=== PATIENT | female | born 1995 | race Caucasian/White ===

== ENCOUNTER 2019-12-15 10:26 | Emergency (ER) | payer BC ==
[2019-12-15] MEDS ORDERED: HYDROcodone/APAP 5-325MG 1 EACH TAB PO STA (11:41)
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
[2019-12-15] MEDS: ONDANSETRON ODT 4 MG TAB PO STA ×2 (12:28→12:38)
--- NOTE | 2019-12-15 12:48 | CT ---
EXAMINATION TYPE: CT brain cspine wo con DATE OF EXAM: 12/15/2019 COMPARISON: HISTORY: head and back injury CT DLP: 1237.7 mGycm Automated exposure control for dose reduction was used. TECHNIQUE: CT scan of the head and cervical spine are performed without contrast. FINDINGS: There is abnormal low attenuation at the inferior aspect of the right and left frontal lo be with associated increased attenuation along the gyri of the right frontal lobe inferiorly greater than left. The left occipital bone shows minimally displaced fracture on the left extending towards t he region of the occipital condyles at the base of skull, there is an overlying cephalohematoma prese nt with lauren at the skin. No hydrocephalus. 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 Nond isplaced right occipital fracture present as well. Cervical spine is visualized in its entirety from C1 through upper thoracic levels and demonstrates s atisfactory alignment without evidence of acute fracture or dislocation. Prevertebral soft tissue ap pears within normal limits. The C1-C2 articulation is unremarkable. IMPRESSION: 1. There is no acute fracture or dislocation evident in the cervical spine. 2. There are likely frontal lobe contusions present, difficult to exclude a small amount of subarachn oid hemorrhage. Skull fractures.
[2019-12-15 13:44] VITALS: BP 116/78; PULSE 51; RESP 18; TEMP 98.4
== END 2019-12-15 13:44 | disposition home or self-care (01) ==
LOC: EC 10:26
DX: S02.113A Unspecified occipital condyle fracture, initial encounter for closed fracture (principal); S06.2X9A Diffuse traumatic brain injury with loss of consciousness of unspecified duration, initial encounter; W18.39XA Other fall on same level, initial encounter; Y93.41 Activity, dancing
CPT/HCPCS: 70450; 72125; 99284

== ENCOUNTER → 2021-02-22 | Outpatient (CLI) | payer BC | END | disposition home or self-care (01) | LOC: LABWHC1 14:28 | PROVIDERS: ATTEND Obstetrics & Gynecology | DX: O20.0 Threatened abortion (principal); Z3A.00 Weeks of gestation of pregnancy not specified | CPT/HCPCS: 36415; 84702; 86850; 86900; 86901 ==

== ENCOUNTER → 2021-02-24 | Outpatient (CLI) | payer BC | END | disposition home or self-care (01) | LOC: LABWHC1 09:22 | PROVIDERS: ATTEND Obstetrics & Gynecology | DX: O20.0 Threatened abortion (principal); Z3A.00 Weeks of gestation of pregnancy not specified | CPT/HCPCS: 36415; 84702 ==

== ENCOUNTER 2021-11-28 15:59 | Inpatient (IN) | payer BC ==
[2021-11-28] MEDS ORDERED: DINOPROSTONE 10 MG INSERT.ER VAGINAL ONE (16:15)
[2021-11-28] MEDS ORDERED: BUTORPHANOL 1 MG/ML 1 ML VIAL IV PRN (16:36)
--- NOTE | 2021-11-28 16:36 | P.HPOB ---
History of Present Illness H&P Date: 11/28/21 Chief Complaint: IUP at 40 and 0/7 weeks This is a 26-year-old 2 para 0010 at 40-0/7 weeks, estimated due date of 11/28. Patient presents for induction of labor. Patient has had routine care which is been essentially uncomplicated. Patient is noted be group beta strep negative. Patient has a known anterior placenta noted anatomy ultrasound. Patient has noted good movement, occasional contractions, no vaginal bleeding or loss of fluid. On bloodwork this patient has a blood type of A+, rubella status immune, RPR is nonreactive, hepatitis B surface antigen negative, HIV negative, group beta strep culture negative as above. Patient did pass her 1 hour gestational diabetes screen Review of Systems Constitutional: Denies chills, Denies fatigue, Denies fever Ears, nose, mouth and throat: Denies headache Cardiovascular: Reports leg edema Respiratory: Denies dyspnea Gastrointestinal: Denies nausea, Denies vomiting Genitourinary: Reports Past Medical History History of Any Multi-Drug Resistant Organisms: None Reported Smoking Status: Never smoker Medications and Allergies Home Medications Medication Instructions Recorded Confirmed Type No Known Home Medications 11/28/21 11/28/21 History Allergies Allergy/AdvReac Type Severity Reaction Status Date / Time No Known Allergies Allergy Verified 11/28/21 16:01 Exam Osteopathic Statement: *. No significant issues noted on an osteopathic structural exam other than those noted in the History and Physical/Consult. Intake and Output 11/28/21 11/28/21 11/28/21 06:59 14:59 22:59 Other: Weight 81.647 kg Targeted physical exam is performed in this date and equity structurer a well-nourished well-developed female in no acute distress, breathing is noted to be nonlabored, heart has a regular rate and rhythm, abdomen is gravid and appropriate for gestational age, on cervical exam she is 1/50/-3 station vertex presentation confirmed by ultrasound, heart tones are noted to be category 1 and on toco uterine irritability. Assessment and Plan (1) Term Current Visit: Yes Status: Acute Code(s): Z34.90 - ENCNTR FOR SUPRVSN OF NORMAL , UNSP, UNSP TRIMESTER SNOMED Code(s): 27440387 Plan: 26-year-old at 40-0/7 weeks presents for induction of labor. Patient has Cervidil placed this evening for cervical ripening. Patient is counseled on the possibility of going home tomorrow should her cervix not become favorable overnight. Patient is counseled for options of analgesia should she go into active labor, Stadol and epidural are discussed she will consider. Continuous monitoring overnight, will plan to reexamine in the morning for further plan of care.
[2021-11-28] MEDS ORDERED: LACTATED RINGERS 1,000 ML IV SCH (16:45)
[2021-11-28 16:46] LABS: Basophils % (A) 0 %; Eosinophils # (A) 0.1 k/uL (0-0.7); Eosinophils % (A) 0 %; HCT 33.2 % (34.0-46.0); HGB 10.5 gm/dL (11.4-16.0); Hypochromasia Slight; Lymphocytes # (A) 2.1 k/uL (1.0-4.8); Lymphocytes % (A) 14 %; MCHC 31.7 g/dL (31.0-37.0); MCV 88.5 fL (80.0-100.0); Mean Platelet Volume 8.5; Monocytes # (A) 1.1 k/uL (0-1.0); Monocytes % (A) 7 %; Neutrophils # (A) 11.7 k/uL (1.3-7.7); Neutrophils % (A) 77 %; Platelet Count 420 k/uL (150-450); RBC 3.75 m/uL (3.80-5.40); RDW 14.2 % (11.5-15.5); WBC 15.1 k/uL (3.8-10.6)
[2021-11-29] MEDS ORDERED: METHYLERGONOVINE 0.2 MG/ML 1 ML AMP IM PRN (05:50)
[2021-11-29] MEDS ORDERED: LIDOCAINE 1% (PF) 10 MG/ML (30 ML SDV) SQ PRN (05:50)
[2021-11-29] MEDS ORDERED: TERBUTALINE 1 MG/ML VIAL SQ PRN (05:50)
[2021-11-29] MEDS ORDERED: OXYTOCIN 10 UNIT/ML 1 ML VIAL IM PRN (05:50)
[2021-11-29] MEDS ORDERED: CARBOPROST TROMETHAMINE 250 MCG/ML 1 ML AMP IM PRN (05:50)
[2021-11-29] MEDS: LACTATED RINGERS 1,000 ML IV SCH ×3 (06:44→19:39)
[2021-11-29] MEDS: OXYTOCIN 30 UNITS/500 ML NS 30 UNIT in SALINE 1 500ML.BAG IV SCH ×2 (06:45→18:22)
[2021-11-29] MEDS ORDERED: CITRIC ACID-SODIUM CITRATE 15 ML CUP PO ONE (17:04)
[2021-11-29] MEDS ORDERED: ONDANSETRON 4 MG/2 ML VIAL ONE (17:22)
[2021-11-29] MEDS ORDERED: OXYTOCIN 30 UNITS/500 ML NS BAG IV ONE (17:22)
[2021-11-29] MEDS ORDERED: NALBUPHINE 10 MG/ML (1 ML AMP) ONE (17:22)
[2021-11-29] MEDS ORDERED: MORPHINE SULFATE (PF) 0.3 MG/0.3 ML SYR ONE (17:22)
[2021-11-29] MEDS ORDERED: ePHEDrine 50 MG/ML 1 ML AMP ONE (17:22)
[2021-11-29] MEDS ORDERED: fentaNYL (PF) 50 MCG/ML 2 ML AMP ONE (17:22)
[2021-11-29] MEDS ORDERED: OXYTOCIN 10 UNIT/ML 1 ML VIAL ONE (17:22)
[2021-11-29] MEDS ORDERED: ONDANSETRON 4 MG/2 ML VIAL IVP PRN ×2 (18:17→18:26)
[2021-11-29] MEDS ORDERED: NALOXONE 0.4 MG/ML 1 ML VIAL IV PRN ×2 (18:17→18:26)
[2021-11-29] MEDS ORDERED: MORPHINE SULFATE 2 MG/ML SYRINGE IVP PRN (18:17)
[2021-11-29] MEDS ORDERED: diphenhydrAMINE 50 MG/ML 1 ML VIAL IVP PRN ×3 (18:17→18:26)
[2021-11-29] MEDS ORDERED: diphenhydrAMINE 25 MG CAP PO PRN (18:26)
[2021-11-29] MEDS ORDERED: diphenhydrAMINE 50 MG CAP PO PRN (18:26)
[2021-11-29] MEDS ORDERED: SIMETHICONE 80 MG CHEWABLE PO PRN (18:26)
[2021-11-29] MEDS ORDERED: OXYTOCIN 30 UNITS/500 ML NS 30 UNIT in SALINE 1 500ML.BAG IV SCH (18:26)
[2021-11-29] MEDS ORDERED: METOCLOPRAMIDE 5 MG/ML 2 ML VIAL IVP PRN (18:26)
[2021-11-29] MEDS ORDERED: ZOLPIDEM 5 MG TAB PO PRN (18:26)
--- NOTE | 2021-11-29 18:26 | P.OP ---
Date of Procedure: 11/29/21 Preoperative Diagnosis: IUP at 40 1/7 weeks, arrest of dilation, arrest of descent Postoperative Diagnosis: Same plus meconium-stained fluid, nuchal cord 2, true knot in umbilical cord Procedure(s) Performed: Primary low transverse section Anesthesia: spinal Surgeon: Blanca Luque Raw Sampler #1: Jason Pérez Estimated Blood Loss (ml): 708 Pathology: other (Placenta) Condition: stable Disposition: observation Indications for Procedure: Arrest of descent and dilation, meconium-stained fluid. Patient was offered continuing with the induction of labor versus primary . Patient elected primary . Operative Findings: Normal uterus tubes and ovaries were appreciated, viable female infant delivered at 1750, weight of 7 lbs. 0 oz., Apgars of 9 and 9, double nuchal cord was appreciated, true knot was appreciated. Description of Procedure: Patient was taken back to the operating suite where spinal anesthesia was found be adequate by the anesthesia department. She was then prepped and draped in normal sterile fashion in the dorsal supine position. A Pfannenstiel skin incision was made the scalpel and carried through the underlying layer fascia. The fascia then incised in the midline and the incision and fixed is extended laterally. The superior aspect of the fascial incision was then grasped michael clamps, elevated and underlying rectus muscles dissected off sharply. The inferior aspect of the fascial incision was then grasped michael clamps, elevated and underlying rectus muscles dissected off sharply once again. The rectus muscles were in the midline the peritoneum was identified and entered. This incision was then extended superiorly and inferiorly with good visualization the bladder. Bladder blade was then inserted into the pelvis and the bladder flap was then created using sharp and blunt dissection. The bladder blade was then reinserted into the pelvis. Hysterotomy incision was made the scalpel, thick meconium-stained fluid was appreciated. The fetus was encountered in a vertex presentation. The fetus was delivered in the usual fashion, a true knot was appreciated along with a double nuchal cord which was reduced at delivery. The umbilical cord was doubly clamped and cut and the was handed off to awaiting RN. Spontaneous cry was noted at . The placenta was then delivered manually and the uterus was cleared of all clots and debris. Uterine incision was then closed with 0 Vicryl in a running locked fashion. A second imbricating suture was performed. Bleeding was noted on the left-hand side of the uterine incision therefore a [id number] suture was used to obtain hemostasis. On further inspection hemostasis was appreciated. The uterus was returned to the abdomen and the gutters were cleared of all clots and debris. The hysterotomy incision was inspected once again any small points of bleeding were made hemostatic with the Bovie. Surgicel was placed along the hysterotomy incision. The bladder flap was then placed over the hysterotomy incision. The peritoneum was then loosely reapproximated. The rectus muscles were inspected and any points of bleeding were made hemostatic with the Bovie. The fascia was then closed 0 Vicryl in a running fashion from one lateral edge the other and the other lateral edge the other. The subcutaneous tissue was irrigated found to be hemostatic and closed with 3-0 Vicryl in a running fashion. The skin was then closed with 4-0 Vicryl in a subcuticular fashion. All counts room to be correct 2 at the end of the procedure. Patient and infant tolerated procedure well and are resting comfortably
[2021-11-29] MEDS: ACETAMINOPHEN IV (For NPO) 1,000 MG in EMPTY BAG 1 BAG IVPB SCH (19:03)
[2021-11-29] MEDS: IBUPROFEN IV 800 MG in SODIUM CHLORIDE 0.9% 250 ML IV SCH (23:15)
[2021-11-30] MEDS: SENNOSIDES-DOCUSATE SODIUM 1 EACH TAB PO SCH ×3 (07:03→19:43)
--- NOTE | 2021-11-30 07:56 | P.PN ---
Subjective Progress Note Date: 11/30/21 Principal diagnosis: Doing well postoperative day #1 Slept well. Minimal to moderate lochia rubra. Pain well controlled. No complaints. Objective - Vital Signs Vital signs: Vital Signs Temp 98.4 F 11/30/21 04:00 Pulse 80 11/30/21 04:00 Resp 16 11/30/21 05:00 BP 122/64 11/30/21 04:00 Pulse Ox 100 11/30/21 03:00 Intake & Output 11/29/21 11/30/21 11/30/21 18:59 06:59 18:59 Intake Total 11.617 Output Total 1300 Balance 11.617 -1300 Intake: Intake, IV Titration 11.617 Amount Oxytocin 30 Units/500 ml 11.617 Ns 30 unit In Saline 1 500ml.bag @ Per Protocol IV .Q0M [facility] Rx#:[id number] Output: Urine 1300 Other: Voiding Method Indwelling Catheter - Constitutional General appearance: Present: average body habitus, cooperative - EENT Eyes: Present: PERRLA ENT: Present: hearing grossly normal - Respiratory Respiratory: bilateral: CTA - Cardiovascular Rhythm: regular - Gastrointestinal General gastrointestinal: Present: normal bowel sounds - Integumentary Integumentary Comment(s): Incision clean and dry, well approximated. Steri-Strips applied. Fundus firm, midline, symmetric, 18 week size. Integumentary: Present: normal turgor - Neurologic Neurologic: Present: CNII-XII intact - Musculoskeletal Musculoskeletal: Present: gait normal, strength equal bilaterally - Psychiatric Psychiatric: Present: A&O x's 3, appropriate affect, intact judgment & insight - Labs CBC & Chem 7: 11/28/21 16:20 Assessment and Plan Assessment: Doing well post operative day #1 Plan: Advance diet and activity. Ferrous sulfate twice daily. Likely discharge home tomorrow. Time with Patient: Less than 30
[2021-11-30 07:58] LABS: Basophils % (A) 0 %; Eosinophils % (A) 0 %; HCT 28.2 % (34.0-46.0); Hypochromasia Marked; Lymphocytes # (A) 1.8 k/uL (1.0-4.8); Lymphocytes % (A) 11 %; MCH 28.8 pg (25.0-35.0); MCV 89.9 fL (80.0-100.0); Monocytes % (A) 6 %; Neutrophils # (A) 13.6 k/uL (1.3-7.7); Neutrophils % (A) 80 %; Platelet Count 347 k/uL (150-450); RBC 3.14 m/uL (3.80-5.40); RDW 14.7 % (11.5-15.5)
--- NOTE | 2021-11-30 08:08 | P.PN ---
Progress Note - Text Date: 11/30/2021 Time: 07:07 The patient is status post section Vital signs stable VAS: 0-10 Patient has no complaints of pain. The patient incurred some minimal itching yesterday, this itching is now subsiding. Pain meds to be managed by service.
[2021-11-30] MEDS: ACETAMINOPHEN TAB 500 MG TAB PO SCH ×3 (08:18→17:41)
[2021-11-30] MEDS: IBUPROFEN IV 800 MG in SODIUM CHLORIDE 0.9% 250 ML IV SCH (08:21)
[2021-11-30] MEDS: IBUPROFEN 600 MG TAB PO SCH ×4 (08:21→21:07)
[2021-11-30] MEDS: ACETAMINOPHEN IV (For NPO) 1,000 MG in EMPTY BAG 1 BAG IVPB SCH (08:21)
[2021-11-30] MEDS: LACTATED RINGERS 1,000 ML IV SCH ×2 (08:23)
[2021-11-30] MEDS: FERROUS SULFATE 325 MG TAB PO SCH (08:23)
[2021-11-30 21:19] VITALS: RESP 16
[2021-12-01] MEDS: ACETAMINOPHEN TAB 500 MG TAB PO SCH ×3 (00:18→14:35)
[2021-12-01] MEDS: IBUPROFEN 600 MG TAB PO SCH ×3 (03:25→14:58)
--- NOTE | 2021-12-01 08:56 | P.DS ---
Providers Date of admission: 11/28/21 15:59 Expected date of discharge: 12/01/21 Attending physician: Blanca Luque Primary care physician: Blanca Luque - Discharge Diagnosis(es) (1) Term Current Visit: Yes Status: Acute (2) Arrest of dilation, delivered, current hospitalization Current Visit: Yes Status: Acute (3) Arrest of descent, delivered, current hospitalization Current Visit: Yes Status: Acute (4) Double nuchal cord Current Visit: Yes Status: Acute (5) Knot, umbilical cord true Current Visit: Yes Status: Acute (6) S/P section Current Visit: Yes Status: Acute Hospital Course: This is a 26-year-old 2 now para 1011 that presented to labor and delivery at 40 weeks of gestation for induction of labor. Patient had been receiving routine care with myself which had been essentially uncomplicated. For full details on this patient please see the dictated history and physical. Patient was admitted for Cervidil induction of labor. Through the night patient noted cramping and occasional contractions. Patient was noted to be 1-2 cm, 60% effaced at a -2 station the morning, amniotomy is performed and clear fluid was obtained. Patient made no progress through the day after Pitocin augmentation was begun. heart tones were noted to be category 1 throughout the induction process. At approximately 4 PM discussed with patient regarding lack of cervical change, arrest of descent despite Pitocin augmentation was had with the patient. Patient was counseled on continuing on versus proceeding with secondary to arrest of first stage of labor. Patient elected with primary . was performed without difficulty. For full details on the please see the operative report. Patient delivered a viable female infant at 1750, weight of 7 lbs. 0 oz., Apgars of 9 and 9 at one and 5 minutes respectfully. A double nuchal cord along with a true knot was appreciated upon delivery. Patient had noted meconium-stained fluid at the time of delivery in addition. For full details on the please see the operative report. Patient's postoperative course has been uneventful. On this postoperative day #2 she is ambulating and voiding without difficulty. She is tolerating a regular diet without nausea or vomiting. States her lochia is moderate. She is breast-feeding without difficulty. She would like discharge home later today if possible. Patient Condition at Discharge: Good Plan - Discharge Summary New Discharge Prescriptions: No Action No Known Home Medications Discharge Medication List No Known Home Medications 11/28/21 [History] Follow up Appointment(s)/Referral(s): Blanca Luque DO [Primary Care Provider] - 2 Weeks Patient Instructions/Handouts: (DC), (GEN) Activity/Diet/Wound Care/Special Instructions: Patient can expect menstrual-like bleeding for 4-6 weeks after delivery. Incision care is discussed with the patient, Steri-Strips will follow-up around 7-10 days, if still intact at 2 weeks will take off at her routine postoperative appointment. Patient is encouraged to continue with ibuprofen and Tylenol for discomfort. Should patient have any concerns prior to the 2 week postoperative check she is urged to call the office. Discharge Disposition: HOME SELF-CARE
[2021-12-01] MEDS: FERROUS SULFATE 325 MG TAB PO SCH (09:26)
[2021-12-01] MEDS: SENNOSIDES-DOCUSATE SODIUM 1 EACH TAB PO SCH (09:26)
[2021-12-01 10:38] VITALS: BP 106/70; PULSE 86; TEMP 97.6
== END 2021-12-01 17:05 | disposition home or self-care (01) | DRG 788 ==
LOC: 4FBP 15:59
PROVIDERS: ADMIT Obstetrics & Gynecology Obstetrics; ATTEND Obstetrics & Gynecology Obstetrics
PROC: 3E0P7VZ Introduction of Hormone into Female Reproductive, Via Natural or Artificial Opening (ICD-10-PCS; 2021-11-28)
PROC: 10907ZC Drainage of Amniotic Fluid, Therapeutic from Products of Conception, Via Natural or Artificial Opening (ICD-10-PCS; 2021-11-29)
PROC: 3E033VJ Introduction of Other Hormone into Peripheral Vein, Percutaneous Approach (ICD-10-PCS; 2021-11-29)
PROC: 10D00Z1 Extraction of Products of Conception, Low, Open Approach (ICD-10-PCS; principal; 2021-11-29 17:30)
DX: O69.1XX0 Labor and delivery complicated by cord around neck, with compression, not applicable or unspecified (principal); O62.0 Primary inadequate contractions; O62.1 Secondary uterine inertia; K21.9 Gastro-esophageal reflux disease without esophagitis; O99.62 Diseases of the digestive system complicating childbirth; O69.2XX0 Labor and delivery complicated by other cord entanglement, with compression, not applicable or unspecified; O99.73 Diseases of the skin and subcutaneous tissue complicating the puerperium; L29.9 Pruritus, unspecified; O77.0 Labor and delivery complicated by meconium in amniotic fluid; Z37.0 Single live birth; Z3A.40 40 weeks gestation of pregnancy
CPT/HCPCS: 85025; 86850; 86900; 86901; 88307

== ENCOUNTER 2023-08-12 18:00 | Outpatient (CLI) | payer BC ==
[2023-08-12 19:08] VITALS: BP 140/88; PULSE 83; RESP 18; TEMP 98.4
--- NOTE | 2023-08-23 10:42 | P.MSEPDOC ---
Presenting Problems - Arrival Data Date of Arrival on Unit: 08/12/23 Time of Arrival on Unit: 18:00 Mode of Transport: Ambulatory - Complaint OB-Reason for Admission/Chief Complaint: Pain Comment: Pain that has been going on for the last week, happens 1-3 times per day and lasts about 15-20 minutes. pt rates 05/06 Medical History - Information : 2 Para: 1 Term: 1 : 0 Abortions: Spontaneous or Elective: 0 Number of Living Children: 1 - Gestational Age Gestational Age by ALEM (wks/days): 34 Weeks and 5 Days Review of Systems - Review of Systems Constitutional: No problems Breast: No problems ENT: No problems Cardiovascular: No problems Respiratory: No problems Gastrointestinal: No problems Genitourinary: No problems Musculoskeletal: No problems Neurological: No problems Skin: No problems Vital Signs - Temperature Temperature: 98.4 F Temperature Source: Axillary - Pulse Right Pulse Oximetery Pulse Rate: 83 Pulse Assessment Method: Pulse Oximetry - Respirations Respiratory Rate: 18 Oxygen Delivery Method: Room Air O2 Sat by Pulse Oximetry: 98 - Blood Pressure Right Arm Blood Pressure: 140/88 Blood Pressure Mean: 105 Blood Pressure Source: Automatic Cuff - Comment Vital Signs Comment: repeat BPs 129/58 and 112/67 Medical Screen Scoring - Assessment - Baby A Baseline FHR: 130 Heart Rate - NICHD Category: Category I (Normal) NST: Reactive Physician Notification - Physician Notified Physician Notified Date: 08/12/23 Physician Notified Time: 18:36 Physician: Marcelino Jacob Order Received: Yes Maternal Triage Index - Maternal Triage Index Presenting for scheduled procedure w/no complaint: No - Stat/Priority 1 Stat Priority 1: No - Urgent/Priority 2 Urgent Priority 2: No - Prompt/Priority 3 Prompt Priority 3: No - Non-Urgent/Priority 4 Non-Urgent Priority 4: Yes Criteria Met for Priority 4: Speculated GI discomforts/Gas pain. not happening at this time but once earlier today and 1-3 times per day the last week or so Disposition - Disposition OB Disposition: Discharge to home Discharge Date: 08/12/23 Discharge Time: 18:44 I agree with the RN Medical Screening Exam: Yes Physician's MSE Comment: I have neither seen nor examined the patient. Case reviewed; plan agreed upon as documented in EMR&OBIX.: Yes Diagnosis: RELATED CONDITIONS, UNSPECIFIED, THIRD TRIMESTER
== END 2023-08-12 18:44 | disposition home or self-care (01) ==
LOC: FBPOP 18:00
PROVIDERS: ATTEND Obstetrics & Gynecology
DX: O26.893 Other specified pregnancy related conditions, third trimester (principal); R14.1 Gas pain; Z3A.34 34 weeks gestation of pregnancy
CPT/HCPCS: 59025; 99213

== ENCOUNTER 2023-09-12 10:06 | Inpatient (IN) | payer BC ==
[2023-09-10 12:20] VITALS: BMI 30.9
[2023-09-12] MEDS ORDERED: METHYLERGONOVINE 0.2 MG/ML 1 ML AMP IM PRN (10:12)
[2023-09-12] MEDS ORDERED: OXYTOCIN 10 UNIT/ML 1 ML VIAL IM PRN (10:12)
[2023-09-12] MEDS ORDERED: CITRIC ACID-SODIUM CITRATE 15 ML CUP PO ONE (10:12)
[2023-09-12] MEDS ORDERED: TRANEXAMIC 1,000 MG/100ML-NACL 1,000 MG in EMPTY BAG 1 BAG IV PRN (10:12)
[2023-09-12] MEDS ORDERED: CARBOPROST TROMETHAMINE 250 MCG/ML 1 ML AMP IM PRN (10:12)
[2023-09-12] MEDS ORDERED: miSOPROStoL 200 MCG TAB PO PRN (10:12)
[2023-09-12] MEDS ORDERED: OXYTOCIN 30 UNITS/500 ML NS 30 UNIT in SALINE 1 500ML.BAG IV SCH (10:15)
[2023-09-12] MEDS: LACTATED RINGERS 1,000 ML IV SCH ×2 (10:39→15:16)
[2023-09-12 10:52] LABS: Basophils % (A) 0 %; Eosinophils % (A) 0 %; HCT 39.1 % (34.0-46.0); HGB 12.6 gm/dL (11.4-16.0); Lymphocytes # (A) 1.8 k/uL (1.0-4.8); Lymphocytes % (A) 11 %; MCH 28.3 pg (25.0-35.0); MCHC 32.3 g/dL (31.0-37.0); MCV 87.7 fL (80.0-100.0); Mean Platelet Volume 8.8; Monocytes # (A) 0.8 k/uL (0-1.0); Monocytes % (A) 5 %; Neutrophils # (A) 12.7 k/uL (1.3-7.7); Neutrophils % (A) 81 %; Platelet Count 309 k/uL (150-450); RBC 4.46 m/uL (3.80-5.40); RDW 14.7 % (11.5-15.5); WBC 15.6 k/uL (3.8-10.6)
[2023-09-12] MEDS ORDERED: NALBUPHINE 10 MG/ML (10 ML MDV) ONE (12:03)
[2023-09-12] MEDS ORDERED: OXYTOCIN 30 UNITS/500 ML NS BAG IV ONE (12:03)
[2023-09-12] MEDS ORDERED: ePHEDrine 50 MG/ML 1 ML VIAL ONE (12:03)
[2023-09-12] MEDS ORDERED: MORPHINE SULFATE (PF) 0.3 MG/0.3 ML SYR ONE (12:03)
[2023-09-12] MEDS ORDERED: ONDANSETRON 4 MG/2 ML VIAL ONE (12:03)
[2023-09-12] MEDS ORDERED: diphenhydrAMINE 50 MG/ML 1 ML VIAL IVP PRN ×2 (12:48)
[2023-09-12] MEDS ORDERED: SIMETHICONE 80 MG CHEWABLE PO PRN (12:48)
[2023-09-12] MEDS ORDERED: METOCLOPRAMIDE 5 MG/ML 2 ML VIAL IVP PRN (12:48)
[2023-09-12] MEDS ORDERED: diphenhydrAMINE 50 MG CAP PO PRN (12:48)
[2023-09-12] MEDS ORDERED: NALOXONE 0.4 MG/ML 1 ML VIAL IV PRN (12:48)
[2023-09-12] MEDS ORDERED: ONDANSETRON 4 MG/2 ML VIAL IVP PRN (12:48)
[2023-09-12] MEDS ORDERED: diphenhydrAMINE 25 MG CAP PO PRN (12:48)
[2023-09-12] MEDS ORDERED: ZOLPIDEM 5 MG TAB PO PRN (12:48)
--- NOTE | 2023-09-12 12:53 | P.HPOB ---
History of Present Illness H&P Date: 09/12/23 Chief Complaint: IUP at 39 and one, history of 1, desires repeat This is a 28-year-old 011 1/7 weeks, estimated due date of 1121 that presents for repeat section. Patient has been receiving routine care with myself which has been essentially uncomplicated. Patient had a prior secondary to arrest of first stage of labor. Patient desired repeat section. On bloodwork this patient has a blood type of A+, rubella status immune, hepatitis B surface antigen negative, HIV negative, RPR is nonreactive, group beta strep culture is positive. This morning patient notes good movement denies contractions vaginal bleeding or loss of fluid. Past Medical History Past Medical History: GERD/Reflux History of Any Multi-Drug Resistant Organisms: None Reported Past Surgical History: Section Past Anesthesia/Blood Transfusion Reactions: No Reported Reaction Past Psychological History: No Psychological Hx Reported Smoking Status: Never smoker Past Alcohol Use History: None Reported Past Drug Use History: None Reported - Past Family History Mother Family Medical History: Asthma Medications and Allergies Home Medications Medication Instructions Recorded Confirmed Type Vit No.179/Iron/Folic 1 each PO DAILY 08/12/23 09/12/23 History [ Tablet] Allergies Allergy/AdvReac Type Severity Reaction Status Date / Time aspirin Allergy Cough Verified 09/10/23 12:13 Exam Osteopathic Statement: *. No significant issues noted on an osteopathic structural exam other than those noted in the History and Physical/Consult. Vital Signs Temp Pulse Resp BP Pulse Ox 09/12/23 10:12 98.6 F 86 18 123/71 97 Intake and Output 09/11/23 09/12/23 09/12/23 22:59 06:59 14:59 Other: Weight 81.647 kg Targeted physical exam is performed in this date and brusher machine a well-nourished well-developed female in no acute distress, breathing is nonlabored, heart has regular rate and rhythm, abdomen is gravid and appropriate for gestational age, cervical exam is deferred. heart tones noted to be category 1 and she is cassidy irregularly. Results Result Diagrams: 09/12/23 10:41 Abnormal Lab Results - Last 24 Hours (Table) 09/12/23 Range/Units 10:41 WBC 15.6 H (3.8-10.6) k/uL Neutrophils # 12.7 H (1.3-7.7) k/uL Assessment and Plan (1) H/O section Current Visit: Yes Status: Acute Code(s): Z98.891 - HISTORY OF UTERINE SCAR FROM PREVIOUS SURGERY SNOMED Code(s): 507728383 (2) Term Current Visit: No Status: Acute Code(s): Z34.90 - ENCNTR FOR SUPRVSN OF NORMAL , UNSP, UNSP TRIMESTER SNOMED Code(s): 71019605 Plan: Twice at 39 and one sevenths weeks that presents to labor and delivery for scheduled repeat section. Patient is counseled on surgery and questions are answered. Risks are reviewed including but not limited to infection, bleeding, damage to bladder, bowel, injury. Patient states understanding and wishes to proceed. We will proceed with anesthesia back to the operating suite for scheduled repeat section.
--- NOTE | 2023-09-12 12:56 | P.OP ---
Date of Procedure: 09/12/23 Preoperative Diagnosis: IUP at 39 and one sevenths weeks, history of 1, desires repeat section. Postoperative Diagnosis: Same Procedure(s) Performed: Repeat section Anesthesia: spinal Surgeon: Blanca Luque Estimated Blood Loss (ml): 525 IV fluids (ml): 800 Urine output (ml): 100 Pathology: none sent Condition: stable Disposition: observation Indications for Procedure: History of 1 desires repeat. Operative Findings: Viable male delivered at 1221, weight of 7 lbs. 14 oz., Apgars of 9 and 9 at one and 5 minutes respectively. Description of Procedure: The patient was prepped and draped in the usual fashion after spinal anesthesia was administered by Dr. Montilla. A Pfannenstiel incision was made and extended of the abdominal cavity without difficulty. The bladder peritoneum was elevated and incised and reflected distally. A 2 cm incision was made in the transverse plane of the lower uterine segment to enter the uterus at which time clear fluid was noted. The incision was extended in both directions bluntly. The head was encountered within the field and delivered up and through the incision where the nose and mouth were thoroughly suctioned. Remainder of the infant was delivered onto the surgical field where the cord was doubly clamped, cut, and the infant was passed for resuscitative measures with weight and Apgars as noted above. The placenta was delivered manually, intact, and was grossly normal with a grossly normal three-vessel cord. The uterus was exteriorized and the interior cavity of the uterus swept of any remaining placental and membranous fragments with a laparotomy sponge. The margins of the incision were grasped with Turner clamps and the incision closed in 2 layers. First layer was a running locking layer of 0 chromic catgut from margin to margin followed by a second layer of imbricating 0 chromic catgut from margin to margin. Any small points of bleeding were then made hemostatic with the Bovie. Once hemostasis was achieved, the posterior cul-de-sac was suctioned with a guard and the uterine and ovarian findings are as noted above. The uterus was replaced within the abdominal cavity and the gutters swept of any remaining blood fluid or clot. The incision was again reexamined and hemostasis was noted to be excellent. Any small point of bleeding were made hemostatic with the Bovie. Once hemostasis was achieved the parietal peritoneum was loosely reapproximated. The layer of muscles were examined and made hemostatic with the Bovie. Attention was then turned to the fascia which was closed with 2 running stitches of 0 Vicryl proceeding from the lateral margins to the midpoint. The subcutaneous tissues were irrigated, made hemostatic with the Bovie, and reapproximated with a running stitch of 30 vicryl. The skin was reapproximated with 4-0 Vicryl. Estimated blood loss for the case was approximately 525 mL. All sponge instrument and needle counts are correct. There were no complications. The patient tolerated the procedure well and proceeded to the recovery room in stable condition. Both mother and are resting comfortably in recovery.
[2023-09-12] MEDS: IBUPROFEN 600 MG TAB PO SCH (19:21)
[2023-09-12] MEDS: ACETAMINOPHEN IV (For NPO) 1,000 MG in EMPTY BAG 1 BAG IVPB SCH (19:31)
[2023-09-12] MEDS: IBUPROFEN IV 800 MG in SODIUM CHLORIDE 0.9% 250 ML IV SCH (20:51)
[2023-09-12] MEDS: SENNOSIDES-DOCUSATE SODIUM 1 EACH TAB PO SCH (20:52)
[2023-09-12] MEDS: ACETAMINOPHEN TAB 500 MG TAB PO SCH ×2 (21:48→23:28)
[2023-09-13] MEDS: ACETAMINOPHEN TAB 500 MG TAB PO SCH ×4 (03:42→21:55)
[2023-09-13] MEDS: ACETAMINOPHEN IV (For NPO) 1,000 MG in EMPTY BAG 1 BAG IVPB SCH (04:25)
[2023-09-13] MEDS: LACTATED RINGERS 1,000 ML IV SCH ×4 (04:25→10:38)
[2023-09-13 04:28] VITALS: RESP 16
[2023-09-13] MEDS: IBUPROFEN 600 MG TAB PO SCH ×4 (05:47→19:59)
[2023-09-13] MEDS: IBUPROFEN IV 800 MG in SODIUM CHLORIDE 0.9% 250 ML IV SCH (07:44)
--- NOTE | 2023-09-13 08:08 | P.PN ---
Progress Note - Text Progress Note Date: 09/13/23 (646) Anesthesia Postop day 1 Subjective: Status Post section with Duramorph. Patient seen and examined. Doing well without complaint. VAS 2 out of 10. Denies nausea vomiting, or pruritus. Afebrile. Gross lower extremity strength intact. Without apparent anesthetic complications. Objective: Vital signs reviewed Heart: Regular Rate Lungs: Good chest excursion Abdomen: Appears nondistended Assessment: Status post with Duramorph postop day 1 Plan: Continue current care with your medical management. Anticipated and the Duramorph section around time today. You may see increased pain needs around this time. This note was dictated using [employer] software. Please be advised there is a potential for misspellings or errors in house nurse..
[2023-09-13] MEDS: PRENATAL VIT-IRON-FOLIC ACID 1 EACH TABLET PO SCH (08:18)
[2023-09-13] MEDS: SENNOSIDES-DOCUSATE SODIUM 1 EACH TAB PO SCH ×2 (08:18→21:02)
[2023-09-13 08:35] LABS: Basophils % (A) 0 %; Eosinophils # (A) 0.1 k/uL (0-0.7); Eosinophils % (A) 0 %; Lymphocytes # (A) 1.2 k/uL (1.0-4.8); Lymphocytes % (A) 7 %; MCH 29.5 pg (25.0-35.0); MCHC 33.3 g/dL (31.0-37.0); MCV 88.6 fL (80.0-100.0); Mean Platelet Volume 8.6; Monocytes # (A) 1.4 k/uL (0-1.0); Monocytes % (A) 8 %; Neutrophils # (A) 14.9 k/uL (1.3-7.7); Neutrophils % (A) 84 %; Platelet Count 275 k/uL (150-450); RBC 4.06 m/uL (3.80-5.40); RDW 14.5 % (11.5-15.5); WBC 17.8 k/uL (3.8-10.6)
--- NOTE | 2023-09-13 12:30 | P.PNOBGPC ---
Subjective - Subjective Principal diagnosis: Postop day 1, repeat section Interval history: Patient is doing well postoperatively. She is ambulating and voiding without difficulty. She is tolerating a regular diet without nausea or vomiting. She states her pain is well-controlled. Lochia is minimal. Patient reports: Reports appetite normal, Reports voiding normally, Reports pain well controlled, Reports ambulating normally : doing well Objective - Vital Signs Latest vital signs: Vital Signs Temp Pulse Resp BP Pulse Ox 09/13/23 08:00 98.4 F 66 16 107/70 97 09/13/23 04:00 98.3 F 76 16 107/65 95 09/13/23 00:00 97.3 F L 86 15 106/56 09/12/23 20:00 98.8 F 76 19 106/60 95 09/12/23 16:00 98.4 F 85 16 106/52 100 09/12/23 14:50 85 16 118/58 100 09/12/23 14:20 91 16 124/70 100 09/12/23 13:50 82 16 118/64 100 09/12/23 13:35 82 16 111/61 100 09/12/23 13:20 97 16 110/67 100 09/12/23 13:05 97 16 101/59 100 09/12/23 12:50 97.1 F L 87 16 127/60 100 Intake and Output 09/12/23 09/13/23 09/13/23 22:59 06:59 14:59 Intake Total 960 Output Total 500 400 Balance 460 -400 Intake: Oral 960 Output: Urine 500 400 Uretheral (Herrera) 500 Other: # Voids 2 1 - Exam Extremities: Present: normal, edema Abdomen: Present: normal appearance Incision: Present: normal, dry, intact Uterus: Present: normal, firm - Labs Labs: Abnormal Lab Results - Last 24 Hours (Table) 09/13/23 Range/Units 07:48 WBC 17.8 H (3.8-10.6) k/uL Neutrophils # 14.9 H (1.3-7.7) k/uL Monocytes # 1.4 H (0-1.0) k/uL Assessment and Plan (1) H/O section Current Visit: No Status: Acute Code(s): Z98.891 - HISTORY OF UTERINE SCAR FROM PREVIOUS SURGERY SNOMED Code(s): 760907846 (2) Term Current Visit: No Status: Acute Code(s): Z34.90 - ENCNTR FOR SUPRVSN OF NORMAL , UNSP, UNSP TRIMESTER SNOMED Code(s): 89474617 (3) Knot, umbilical cord true Current Visit: No Status: Acute Code(s): O69.2XX0 - LABOR AND DEL COMP BY OTH CORD ENTANGLE, W COMPRSN, UNSP SNOMED Code(s): 96230534 (4) S/P section Current Visit: No Status: Acute Code(s): Z98.891 - HISTORY OF UTERINE SCAR FROM PREVIOUS SURGERY SNOMED Code(s): 084700150 Plan: Patient is doing well postoperatively. Encouraged increased ambulation. Continue routine postoperative care, anticipate discharge home tomorrow.
[2023-09-14] MEDS: IBUPROFEN 600 MG TAB PO SCH ×2 (02:21→10:33)
[2023-09-14] MEDS: ACETAMINOPHEN TAB 500 MG TAB PO SCH (03:55)
[2023-09-14 08:10] VITALS: BP 130/73; PULSE 69; TEMP 97.5
[2023-09-14] MEDS: SENNOSIDES-DOCUSATE SODIUM 1 EACH TAB PO SCH (08:10)
[2023-09-14] MEDS: PRENATAL VIT-IRON-FOLIC ACID 1 EACH TABLET PO SCH (08:11)
--- NOTE | 2023-09-14 11:22 | P.DS ---
Providers Date of admission: 09/12/23 10:06 Expected date of discharge: 09/14/23 Attending physician: Blanca Luque Primary care physician: Stated None Hospital Course: Ms. Jewell is a 28 year old now POD#2 s/p scheduled repeat section. The patient is doing well this morning and had no acute events overnight. She has no complaints this morning. She reports minimal lochia, passing flatus, voiding without difficulty, ambulating, and eating/drinking without nausea or vomiting. Infant doing well at bedside, circumcision was declined. She denies chest pain, shortness of breathing, fevers, or chills overnight. She denies pain or swelling in the legs. Postoperative restrictions are reviewed with the patient including pelvic rest for 6 weeks, no lifting heavier than 15 pounds for 6 weeks. The patient is encouraged to call the office if she experiences any heavy bleeding, foul-smelling discharge, breast complaints, or any if she has any other concerns. She will follow up in the office with Dr. Luque in 2 weeks for postoperative exam. She declines 3-day supply of narcotics and she will take Motrin and Tylenol that she already has at home. All questions are answered. Assessment: 28 year old now POD#2 s/p scheduled repeat LTCS Patient Condition at Discharge: Good Plan - Discharge Summary Discharge Rx Participant: Yes New Discharge Prescriptions: No Action Vit No.179/Iron/Folic [ Tablet] 1 each PO DAILY Discharge Medication List Vit No.179/Iron/Folic [ Tablet] 1 each PO DAILY 08/12/23 [History] Follow up Appointment(s)/Referral(s): Blanca Luque DO [Doctor of Osteopathic Medicine] - 2 Weeks (incision check) Activity/Diet/Wound Care/Special Instructions: Instructions 1. Do not begin any exercise program for 3 weeks. 2. Do not resume sexual relations for 6 weeks or longer if uncomfortable. 3. You may take tub baths or showers at any time. 4. You may use tampons if desired after 6 weeks. 5. Keep any areas repaired with stitches clean and dry. 6. If you are not nursing, wear a good fitting, supportive bra during the day and limit fluid intake for at least 1 week to prevent breast engorgement. 7. Call the office, , within the next week to make appointment for your 6 week checkup if it has not already been made. 8. Report any of the following occurrences to the doctor promptly: a. Heavy, excessive bleeding b. Chills, fever c. Burning or frequency of urination d. Pain or redness and breasts if nursing e. Increasing pain or swelling of vulva (stitches). In addition to the above instructions, the following additional should be followed: 1. No heavy lifting or straining (exercising) until after 6 week checkup. 2. Keep abdominal incision clean and dry: You may wear a dressing if more comfortable. 3. Make office appointment for 2 weeks after delivery date. Discharge Disposition: HOME SELF-CARE
== END 2023-09-14 12:05 | disposition home or self-care (01) | DRG 788 ==
LOC: 4FBP 10:06
PROVIDERS: ADMIT Obstetrics & Gynecology Obstetrics; ATTEND Obstetrics & Gynecology Obstetrics
PROC: 10D00Z1 Extraction of Products of Conception, Low, Open Approach (ICD-10-PCS; principal; 2023-09-12 12:00)
DX: O34.211 Maternal care for low transverse scar from previous cesarean delivery (principal); O99.62 Diseases of the digestive system complicating childbirth; K21.9 Gastro-esophageal reflux disease without esophagitis; O69.1XX0 Labor and delivery complicated by cord around neck, with compression, not applicable or unspecified; O99.824 Streptococcus B carrier state complicating childbirth; Z88.6 Allergy status to analgesic agent; Z3A.39 39 weeks gestation of pregnancy; Z37.0 Single live birth
CPT/HCPCS: 85025; 86850; 86900; 86901